=== PATIENT | male | born 1935 | race Caucasian/White ===

== ENCOUNTER 2017-04-23 08:22 | Inpatient (IN) | payer OTHER ==
[2017-04-04 09:54] LABS: HEMOGLOBIN 14.3 gm/dL (14.0-18.0); MCH 29.9 pg (26.0-34.0); MCHC 33.4 g/dL (28.0-37.0); MCV 89.6 fL (80.0-100.0); MPV 8.2 fl. (7.2-11.1); RBC 4.8 mil/uL (4.50-6.00); RDW-CV 13.8 % (10.5-14.5); WBC 9.4 thou/uL (4.0-11.0)
[2017-04-04 09:58] LABS: INR 1.1; PROTIME 10.7 Seconds (9.20-11.50)
[2017-04-04 10:24] LABS: ALBUMIN 3.6 g/dL (3.4-5.0); CALCIUM 8.8 mg/dL (8.5-10.1); CREATININE 1.2 mg/dL (0.6-1.3); POTASSIUM 3.7 mmol/L (3.5-5.1); TOTAL BILIRUBIN 0.9 mg/dL (<0.1-1.0); TOTAL PROTEIN 7.5 g/dL (6.4-8.2)
[2017-04-04 11:20] LABS: URINE BILIRUBIN NEGATIVE (Negative); URINE BLOOD NEGATIVE (Negative); URINE CLARITY CLEAR; URINE COLOR YELLOW; URINE GLUCOSE-RANDOM NEGATIVE (Negative); URINE KETONES TRACE (Negative); URINE LEUKOCYTES-REFLEX NEGATIVE (Negative); URINE NITRITE-REFLEX NEGATIVE (Negative); URINE PROTEIN NEGATIVE (Negative); URINE SPECIFIC GRAVITY 1.025 (1.005-1.030); URINE UROBILINOGEN 0.2 E.U./dl (0.2-1.0)
--- NOTE | 2017-04-04 17:19 | EKG ---
[place] [address] ELECTROCARDIOGRAM REPORT Name: ZI MAC Room: [address]#: [id number] Admission: 04/23/17 Attend Phys: Khadijah Clark Discharge: 04/27/17 Date of : 33 Report #: [id number] THIS REPORT FOR: //name// [facility] Test Date: 2017-04-04 Test Time: 09:06:25 Pat Name: ZI MAC Department: Room: Gender: Network Operations Project Manager: : 1935 Requested By: aMrk Carter Order Number: [id number] Miah MD: Kalia Esposito Measurements Intervals [place] Rate: 70 P: 0 MA: 263 QRS: -6 QRSD: 98 T: -16 QT: 402 QTc: 434 Interpretive Statements Sinus rhythm Prolonged MA interval RSR' in V1 or V2, right VCD or RVH LVH with secondary repolarization abnormality No previous ECG available for comparison Electronically Signed On 04-04-2017 17:19:47 BORING MACHINE SET UP OPERATOR JIG by Kalia Esposito [email or web address] <ELECTRONICALLY SIGNED> By: Kalia Esposito MD, LOCATED WITHIN [facility] 04/04/17 [id number] Kalia Esposito MD, [facility] /EPI
[~2017-04-23] VITALS: Ht 162.6 cm; Wt 72.6 kg
[~2017-04-23 08:22] MED LIST: ASPIR 8181 MG PO; CARDURA4 MG PO; MILK OF MA400 MG/5 M PO; NORVASC2.5 MG PO; OCUVITE TABLET1 EAC1 PO; PLAVIX 75 MG TA75 M1 PO; SYNTHROID50 MCG PO
[2017-04-23] MEDS ORDERED: PRESERVISION T1 EACH PO (08:46)
[2017-04-23 09:59] VITALS: BP 121/65
[2017-04-23 14:52] VITALS: BP 109/43
--- NOTE | 2017-04-23 17:51 | NUR ---
PT TRANSFERRED TO [facility], REPORT GIVEN TO SHELLIE LAMAS. PT DENIES PAIN OR OTHER DISCOMFORTS CURRENTLY. PT ADMITTED TO ORTHO S/P L TKA. SURGICAL DRESSING IN PLACE, POLAR CARE ON, SCD'S IN PLACE. HEMAVAC WITH SANGUINOUS DRAINAGE. PT HRR 90S. PT CONCERNED THAT HR IN 90S SAYING IT IS USUALLY IN 50S-60S. PT REPORTED FEELING HEART FLUTTERING. EKG OBTAINED, DR INFORMED AND ORDERS GIVEN. PT DENIED SOA OR CHEST PAIN.
--- NOTE | 2017-04-23 19:29 | NUR ---
PAITNET TRANSFERRED FROM JOINT/SPINE AT 17:45. PLACED ON 211 TELEMETRY PACK. 1DEGTREE AV BNLOCK WITH PVC ON MONITOR. HOURLY ROUNDING COMPLETED FOR PATIENT SAFETY
[2017-04-23 20:00] VITALS: BP 130/63
[2017-04-24] VITALS: BP 144/86
[2017-04-24 04:00] VITALS: BP 115/53
--- NOTE | 2017-04-24 04:18 | NUR ---
ASSUMED CARE OF PT AT 1930, NURSING ASSESSMENT COMPLETED AT START OF SHIFT, PRN PAIN MEDICATIONS ADMINISTERED THIS SHIFT, SEE EMAR FOR DOCUMENTATION, IVF INFUSING, PT TRACING SINUS RHTHM WITH 1ST DEGREE AV BLOCK. NO CONCERNS VOICED THIS SHIFT, PT ON CONTINUOUS CAPNOGRAPHY. CALL LIGHT WITHIN REACH.
[2017-04-24 05:24] LABS: HEMATOCRIT 36.6 % (42.0-52.0); HEMOGLOBIN 12.4 gm/dL (14.0-18.0)
--- NOTE | 2017-04-24 06:59 | NUR ---
PT TOLERATED 1 HR WITH CPM AT 2330. PT PLACED ON CPM AT 0645, TOLERATING WELL. NO CONCERNS VOICED AT THIS TIME.
--- NOTE | 2017-04-24 07:33 | NUR ---
SKILLED OT DEFERRED TO P.T. FOLLOWING LTKR.
[2017-04-24 08:00] VITALS: BP 140/65
[2017-04-24 09:39] LABS: CALCIUM 8.2 mg/dL (8.5-10.1); MAGNESIUM 2.4 mg/dL (1.8-2.4); POTASSIUM 3.5 mmol/L (3.5-5.1)
--- NOTE | 2017-04-24 10:51 | NUR ---
CM ASSESSMENT: VISITED WITH PT AND IN ROOM. PT SLIGHTLY CONFUSED FROM PAIN MEDS. STATES THE PLAN IS FOR PT TO RETURN HOME AND HAVE HOME HEALTH. SHE DOES NOT HAVE A PREFERENCE FOR A COMPANY. PT IS GOING TO TAKE HIS CPM AND POLAR PACK HOME WITH HIM
--- NOTE | 2017-04-24 11:19 | EKG ---
[place] [address] ELECTROCARDIOGRAM REPORT Name: ZI MAC Room: [address] IN [facility]#: [id number] Admission: 04/23/17 Attend Phys: Khadijah Clark Discharge: 04/27/17 Date of : 33 Report #: [id number] THIS REPORT FOR: //name// [facility] Test Date: 2017-04-23 Test Time: 16:23:07 Pat Name: ZI MAC Department: Room: [facility] Gender: Account Services Specialist: [facility] : 1935 Requested By: Travis Arias Order Number: [id number] Miah MD: Sekou Kaur Measurements Intervals [place] Rate: 92 P: MO: QRS: -16 QRSD: 101 T: 150 QT: 391 QTc: 484 Interpretive Statements sinus rhythm Multiple ventricular premature complexes Probable LVH with secondary repol abnrm Borderline prolonged QT interval Compared to ECG 04/04/2017 09:06:25 Ventricular premature complex(es) now present Electronically Signed On 04-24-2017 11:19:34 ASSISTANT EXECUTIVE HOUSEKEEPER by Sekou Kaur [email or web address] <ELECTRONICALLY SIGNED> By: Sekou Kaur MD, FAC 04/24/17 1119 1623 1623 Sekou Kaur MD, [facility] /EPI
[2017-04-24 11:41] VITALS: BP 145/65
[2017-04-24 16:00] VITALS: BP 104/50
--- NOTE | 2017-04-24 17:36 | 2DMMODE ---
[place] [address] 2 D/M-MODE ECHOCARDIOGRAM Name: ZI MAC Room: [address] IN [facility]#: [id number] Admission: 04/23/17 Attend Phys: David Grier Discharge: 04/27/17 Date of : 33 Date of Service: 04/24/17 1736 Report #: [id number] THIS REPORT FOR: //name// APPROVED REPORT Study performed: 04/24/2017 10:53:50 EXAM: Comprehensive 2D, Doppler, and color-flow Echocardiogram Patient Location: In-Patient Room #: 215 Status: routine BSA: 1.78 HR: 71 bpm BP: 115/53 mmHg Rhythm: NSR Other Information Study Quality: Good Indications Atrial Fibrillation 2D Dimensions LVEF(%): 56.99 (>50%) IVSd: 13.18 (7-11mm) LVOT Diam: 19.75 (18-24mm) LVDd: 34.12 mm PWd: 10.98 (7-11mm) Ascending Ao: 33.23 (22-36mm) LVDs: 24.20 (25-40mm) Aortic Root: 30.96 mm Hadley's LVEF: 56.99 % Volumes Left Atrial Volume (Systole) LA ESV Index: 25.40 mL/m2 Aortic Valve AoV Peak Delio.: 1.31 m/s AO Peak Gr.: 6.84 mmHg LVOT Max P.59 mmHg AO Mean Gr.: 3.70 mmHg LVOT Mean P.04 mmHg LVOT Max V: 1.07 m/s AO V2 VTI: 25.19 cm LVOT Mean V: 0.65 m/s ADRIANA (VTI): 2.84 cm2 LVOT V1 VTI: 23.39 cm Mitral Valve E/A Ratio: 0.86 [place] [address] 2 D/M-MODE ECHOCARDIOGRAM Name: ZI MAC Room: [address]#: [id number] Admission: 04/23/17 Attend Phys: David Grier Discharge: 04/27/17 Date of : 33 Date of Service: 04/24/17 1736 Report #: [id number] MV Decel. Time: 254.85 ms MV E Max Delio.: 0.66 m/s MV PHT: 73.91 ms MVA (PHT): 2.98 cm2 TDI E/Lateral E': 6.00 E/Medial E': 11.00 Medial E' Delio.: 0.06 m/s Lateral E' Delio.: 0.11 m/s Pulmonary Valve PV Peak Delio.: 0.90 m/s PV Peak Gr.: 3.27 mmHg Left Ventricle The left ventricle is normal size. There is normal LV segmental wall motion. There is normal left ventricular wall thickness. Left ventricular systolic function is normal. The left ventricular ejection fraction is within the normal range. LVEF is 55-60%. Grade I - abnormal relaxation pattern. Right Ventricle The right ventricle is normal size. The right ventricular systolic function is normal. Atria The left atrium size is normal. The right atrium size is normal. Aortic Valve The aortic valve is normal in structure. Trace aortic regurgitation. There is no aortic valvular stenosis. Mitral Valve The mitral valve is normal in structure. Trace mitral regurgitation. No evidence of mitral valve stenosis. Tricuspid Valve The tricuspid valve is normal in structure. Unable to assess PA pressure. Trace tricuspid regurgitation. Pulmonic Valve The pulmonary valve is normal in structure. There is no pulmonic valvular regurgitation. Great Vessels The aortic root is normal in size. IVC [place] [address] 2 D/M-MODE ECHOCARDIOGRAM Name: ZI MAC Room: [address] IN .R.#: [id number] Admission: 04/23/17 Attend Phys: David Grier Discharge: 04/27/17 Date of : 33 Date of Service: 04/24/17 1736 Report #: [id number] collapses with >50% inspiration Pericardium There is no pericardial effusion. <Conclusion> Left ventricular systolic function is normal. The left ventricular ejection fraction is within the normal range. <ELECTRONICALLY SIGNED> By: Sekou Kaur MD, FACC 04/24/17 1736 1736 1736 Sekou Kaur MD, FACC /INF
--- NOTE | 2017-04-24 19:06 | NUR ---
ASSUMED RESPONSIBILITY OF PT THIS AM PT VERY CONFUSED THIS AM AFTER GIVING PERCOCET 2 TABS PT PROCEEDED TO CALL 911 AND VERTICAL PUNCH OPERATOR CALLED TO LET US KNOW ASKED PT WHY HE DID THAT AND HE SAID 'WELL THEY ANSWERED ME. I DON'T KNOW I'M JUST ALL CONFUSED RIGHT NOW' STATED HE IS ALREADY KIND OF CONFUSED AT HOME AND PAIN MEDS MAKE IT WORSE GAVE PT IV TORADOL AND THAT SEEMED TO HELP WITHOUT HAVING HALLUCINATIONS OR BEING CONFUSED MUCH PT DID GET UP AND WALK WITH A WALKER WITH THERAPY AND DID WELL PT IS NSR 1D AV BLOCK ON THE MONITOR LFA CONT WITH 1/2 NS AT 75/H RODNEY DRAIN CONT WITH DARK RED THICK BLOOD POLAR PACK TO LEFT LEG AND CPM DONE THIS AM TOLERATED WELL CALL LIGHT IN REACH AT BEDSIDE T/O DAY BED ALARM ON PT IS NOW RESTING QUIETLY
[2017-04-24 20:00] VITALS: BP 110/73
[2017-04-25] VITALS: BP 113/53
--- NOTE | 2017-04-25 02:56 | NUR ---
ASSUMED CARE OF PT AT 1929, NURSING ASSESSMENT COMPLETED AT START OF SHIFT, PT CONFUSED, ORIENTED TO SELF ONLY. PT REORIENTED TO PERSON, PLACE, SITUATION AND DATE. PLACED LEFT LEG ON CPM. AT 2129, PT PUSHED SIDE TABLE ON IT'S SIDE, PULLED TELE MONITOR OFF, REMOVED IV CATHETER FROM LEFT FOREARM, PULLED POLAR PACK OFF AND PULLED RODNEY DRAIN. PT COMBATIVE, VERY AGGITATED, STATING HE NEEDED TO GET OUT OF BED, PT PARANOID, STATING THERE WAS AN ACTIVE SHOOTER AND THAT THAT THIS NURSE'S MOTHER IS . ATTEMPTED TO REORIENT PATIENT TO PERSON, PLACE, DATE, AND SITUATION. PT ATTEMPTED TO STRIKE NURSE WITH FIST, AND THREATENING TO HARM STAFF. DR. RIVAS PAGED AND NEW ORDERS RECEIVED. PT ADMINISTERED IM MEDICATION ORDERED, SEE EMAR FOR DOCUMENTATION. PT ONLY TOLERATED CPM FOR 30 MIN AT START OF SHIFT, RESTING QUETLY IN ROOM, SON AT BEDSIDE.
[2017-04-25 04:38] VITALS: BP 133/58
--- NOTE | 2017-04-25 05:28 | NUR ---
PT RESTING QUIETLY IN ROOM. SON CONTINUES AT BEDSIDE. ON TELE MONITOR THIS SHIFT, PT TRACING SINUS RHYTHM TO SINUS TACHY IN THE LOW 100'S. CALL LIGHT REMAINS WITHIN REACH.
[2017-04-25 05:32] LABS: HEMATOCRIT 32.5 % (42.0-52.0)
[2017-04-25 08:00] VITALS: BP 120/50
--- NOTE | 2017-04-25 09:51 | NUR ---
Spoke with Pt's son regarding disposition, son believes that Pt will need rehab at dc, d/t continued confusion after surgery. Explained how rehab works and how insurance pays. Son to speak with family regarding skilled. Pt was able to ambulate 100ft yesterday with PT. Following.
--- NOTE | 2017-04-25 15:00 | NUR ---
ASSUMED CARE OF PATIENT. AGREE WITH PREVIOUS NURSES CHARTING.
--- NOTE | 2017-04-25 18:01 | NUR ---
PATIENT IS VERY DROWZY AND CONFUSED. IV IS PATENT AND SALINE LOCKED IN LEFT FOREARM. DENIES PAIN AND NAUSEA. TOLERATED DIET FOR DINNER, REFUSED LUNCH. VSS ON ROOM AIR. HOURLY ROUNDS HAVE BEEN MAINTAINED THROUGHOUT SHIFT. CALL LIGHT IS WITHIN REACH. NURSING WILL CONTINUE TO MONITOR.
[2017-04-25 19:45] VITALS: BP 129/69
[2017-04-25 23:59] VITALS: BP 119/55
--- NOTE | 2017-04-26 04:25 | NUR ---
PATIENT HAS REMAINED ALERT AND ORIENTED X 2-3/FORGETFUL, PLEASANT AND COOPERATIVE. UTILIZED CPM LEFT LEG X 2 HOURS EARLY EVENING. TOLERATED WELL. HAS HAD NO STATED PAIN. DRESSING LEFT KNEE CLEAN AND DRY. VITAL SIGNS STABLE. TOLERATING FLUIDS AND HAS HAD ADEQUATE VOIDS. CONTINUE TO MONITOR.
[2017-04-26 08:00] VITALS: BP 121/49
--- NOTE | 2017-04-26 10:17 | NUR ---
FAXED OT RHONDAAL TO [facility] AND NOTIFIED HER.
--- NOTE | 2017-04-26 12:10 | S ---
[address] [address] SURGICAL PATH RPT PROCEDURE Name: ZI LUCIO Room: [address] IN ..#: [id number] Admission: 04/23/17 Date of : 33 Discharge: 04/27/17 Report #: [id number] Path Case #: [id number] PATHOLOGY REPORT COLLECTION DATE: 04/23/2017 RECEIVED DATE: 04/24/2017 SUBMITTING PHYS: Dr. Mark Carter II OTHER PHYS: Dr. David Martinez SPECIMEN(S) RECEIVED: A.Left knee bone and tissue * * * * * * * * * * * * FINAL DIAGNOSIS: Left knee bone and tissue, total knee replacement: - Benign meniscus with microcystic degenerative changes, benign synovium/fibrofatty tissue and benign bone and cartilage with severe degenerative changes. (JORDAN:pit; 04/25/2017) PATHOLOGIST: Hayden Murguia M.D. REPORT ELECTRONICALLY SIGNED BY: Hayden Murguia M.D. DATE/TIME: 04/26/2017 12:09 * * * * * * * * * * * * GROSS PATHOLOGY: Received in formalin labeled "Zi Lucio, left knee bone and tissue," are multiple segments of bone, including tibial plateau, measuring 13.4 x 12.5 x 2.2 cm in aggregate dimensions with admixed soft tissue; meniscus is present. The specimen shows focal eburnation of the articular surfaces. Highway Engineering Technician sections of bone and soft tissue are submitted in cassette A1, following decalcification. (SDY; 04/24/2017) After initial microscopic examination additional sections are submitted in cassette A2. (SDY; 04/26/2017) CLINICAL HISTORY: Left knee degenerative joint disease INITIAL CPT CODE(S): A; 35579, 52362 Professional services performed by [facility] at [facility], [address] [place] [address]. [place] [address] SURGICAL PATH RPT PROCEDURE Name: ZI LUCIO Room: [address] IN ..#: [id number] Admission: 04/23/17 Date of : 33 Discharge: 04/27/17 Report #: [id number] Path Case #: [id number] services performed by [facility] at [address] [place] [address], [facility] [address] [address]. [facility] [address] [place] [address] PHONE: [phone] DIRECTOR: Luis Felix M.D. * * * END OF REPORT * * *
--- NOTE | 2017-04-26 15:34 | NUR ---
PER ANTONIO, INSURANCE DENIED PT.TO GO TO SNF. DID NOT WANT TO DO PEER TO PEER REVIEW. HE SAID WE WILL KEEP PT.ONE MORE DAY. THERAPY FEELS PT.SHOULD GO TO SNF. FAXED P.T.TREATMENT FROM TODAY TO [facility]. SHE WILL RE SEND TO INSURANCE. AFTER SEEING PT.THERAPIST SAID PT.COULD PROBABLY GO HOME. TOLD HER THEY HAVE RAMPS AND COULD HAVE ACCESS TO A WC TO GET PT.IN HOUSE. CM SPOKE WITH PT.AND . SAID SON COULD COME STAY WITH THEM IF NEEDED. THEY CHOSE [facility] . REFERRAL SENT TO [facility]. SHE CALLED AND SAID TO NOTIFY HER OVER THE WEEKEND IF PT.GOES HOME AND FAX FINAL ORDERS. [facility]-[phone]/[phone]
[2017-04-26 16:00] VITALS: BP 130/54
--- NOTE | 2017-04-26 18:43 | NUR ---
ALERT AND ORIENTED X4. UP WITH ASSIST X1 WITH WALKER. PAIN BEING MANAGED WITH IV TORDOL. DENIES NAUSEA. ATTENDED THERAPY THIS AM AND PM. CPM USE X2 0-70. [facility] CARE IN PLACE. IV IS PATENT AND SALINE LOCKED. VSS ON ROOM AIR. HOURLY ROUNDS HAVE BEEN MAINTAINED THROUGHOUT SHIFT. CALL LIGHT IS WITHIN REACH. NURSING WILL CONTINUE TO MONITOR.
[2017-04-26 21:15] VITALS: BP 152/71
[2017-04-27 00:25] VITALS: BP 122/53
[2017-04-27 04:10] VITALS: BP 145/58
--- NOTE | 2017-04-27 05:14 | NUR ---
PATIENT HAS REMAINED ALERT AND ORIENTED X 2-3, FORGETFUL. PLEASANT AND COOPERATIVE. CPM X 2 HOURS AT HS. TOLERATED WELL. AMBULATED TO BR WITH WALKER, GAIT BELT AND CGA. DRESSING LEFT KNEE CLEAN AND DRY. PASSING GAS. NO BM. VITAL SIGNS STABLE. CONTINUE TO MONITOR.
[2017-04-27 08:07] VITALS: BP 143/63
[2017-04-27 10:03] VITALS: BP 143/63
[2017-04-27 14:34] VITALS: BP 143/63
[2017-04-27] MEDS ORDERED: XARELTO10 MG PO (14:47)
[2017-04-27] MEDS ORDERED: TRAMADOL 50 MG50 MG PO (14:50)
[2017-04-27] MEDS ORDERED: HYDROCODONE-AP1 EAC6 PO (14:51)
[2017-04-27] MEDS ORDERED: PERCOCET PO (14:52)
--- NOTE | 2017-04-27 14:56 | NUR ---
CM faxed final dc orders to [facility]. Pt discharging to home today.
[2017-04-27] MEDS ORDERED: COLACE100 MG PO (15:03)
[2017-04-27] MEDS ORDERED: METAMUCIL PACK3.4 GM PO (15:05)
--- NOTE | 2017-04-27 15:50 | NUR ---
PT DC'D HOME WITH ALL BELONGINGS. PT IV REMOVED INTACT BEFORE DISMISSAL. PT DENIED PAIN. UP WITH SBA USING WALKER. PRESCRIPTIONS SENT WITH PT.
--- NOTE | 2017-05-08 16:33 | OP ---
[facility] [address] [place] [address] OPERATIVE REPORT Name: ZI MAC Room: [address] IN .R.#: [id number] Admission: 04/23/17 Attend Phys: Khadijah Clark Discharge: 04/27/17 Date of : 33 Report #: [id number] THIS REPORT FOR: //name// CC: Mark Grier DATE OF SERVICE: 04/23/2017 PREOPERATIVE DIAGNOSIS: Left knee osteoarthritis. POSTOPERATIVE DIAGNOSIS: Left knee osteoarthritis. PROCEDURE: Left total knee arthroplasty. SURGEON: Mark Brito II, DO SPINNER FRAME: IVÁN Garcia ANESTHESIA: General endotracheal. ESTIMATED BLOOD LOSS: 50 mL. ANTIBIOTICS: Ancef preoperatively. DRAINS: Medium Hemovac. COMPLICATIONS: None. DISPOSITION: Stable to recovery room. IMPLANTS: Listed in the operative record and progress note. BRIEF HISTORY: The patient was seen in the preoperative area. Preop H and P was performed. The patient's site was marked, questions were answered. Risks and benefits were discussed with the patient in detail about surgery. The patient wished to proceed and assumed all risks. OPERATIVE PROCEDURE: The patient taken to operative suite, placed supine on the operating table, given appropriate anesthesia. The patient had a well-padded tourniquet applied to the upper thigh which was inflated to 300 mmHg after gravity exsanguination for the duration of procedure. The operative knee was sterilely prepped and draped. Surgery began by midline incision. This was carried down to subcutaneous tissues. A medial parapatellar arthrotomy was performed and carried down to bone. The patella was then everted and excess soft tissue was removed around the femur. The femoral cutting block was then [facility] [address] [place] [id number] OPERATIVE REPORT Name: ZI MAC Room: [address]#: [id number] Admission: 04/23/17 Attend Phys: Khadijah Clark Discharge: 04/27/17 Date of : 33 Report #: [id number] applied, checked with a drop marianna for rotational alignment, pinned into appropriate position and appropriate cuts were made. A 4-in-1 cutting block was then applied, checked for rotational alignment, pinned into an appropriate position, appropriate cuts were made. The tibia was then exposed. Excess meniscus was removed. Retractor was then placed on the collateral ligaments. The tibial cutting block was applied, pinned into appropriate position, checked with a drop marianna for rotational alignment and slope and appropriate cut was made. The tibial bone was removed. The tibial baseplate was then applied, checked for rotational alignment with drop marianna and pinned into appropriate position. Femur was then applied and a box cut was reamed. This was then trialed with the appropriate spacer which showed excellent fit and fill and excellent stability of the knee through all range of motion. The patella was then reamed in appropriate fashion and sized to appropriate size. Three peg holes were drilled and it was then trialed and found to have excellent flexion, extension, excellent tracking of patella from the groove. These trials were then removed. The tibia was then punched in appropriate fashion. Bone ends were cleansed with Pulsavac irrigation and cement was mixed and applied to the final implants. These were then malleted into position and held with the knee in extension and compressed to allow cement to cure. After it had cured, excess was removed using [place] and osteotome. The wound was then copiously irrigated and the final spacer was then malleted in position. The tourniquet was deflated. Hemostasis was obtained with electrocautery. Pain cocktail was injected. PRP gel was sprayed throughout the internal aspects of the knee. Medium Hemovac drain was then applied. The capsule was then closed with 2 FiberWire and #1 Vicryl in [id number] fashion. Skin was closed with 2-0 Vicryl and running 3-0 Monocryl. Dermabond and sterile dressing was then applied as well as Lino wrap and PolarCare. The patient was transported to recovery in stable condition. Counts were correct throughout the procedure. <ELECTRONICALLY SIGNED> By: Mark Carter II, DO 05/08/17 1633 1223 [id number] Carter II, DO /nt
== END 2017-04-27 15:45 | disposition home health service (06) | DRG 469 ==
LOC: M.TBA 08:22 → M.ORTHSURG 08:22 → M.2W 08:22 → M.PRE 11:20 → M.ORTHSURG 14:14 → M.PRE 16:08 → M.ORTHSURG 16:34 → M.2W 17:48 → M.ORTHSURG 04-25 14:52 → M.PRE 04-23 11:08
PROVIDERS: Internal Medicine; Orthopaedic Surgery; ADMIT Internal Medicine
PROC: 0SRD0J9 Replacement of Left Knee Joint with Synthetic Substitute, Cemented, Open Approach (ICD-10-PCS; principal; 2017-04-23)
DX: M17.12 Unilateral primary osteoarthritis, left knee (principal); G92 Toxic encephalopathy; I50.32 Chronic diastolic (congestive) heart failure; I25.10 Atherosclerotic heart disease of native coronary artery without angina pectoris; G47.33 Obstructive sleep apnea (adult) (pediatric); I49.3 Ventricular premature depolarization; E03.9 Hypothyroidism, unspecified; I11.0 Hypertensive heart disease with heart failure; K59.09 Other constipation; Z95.1 Presence of aortocoronary bypass graft; Z95.5 Presence of coronary angioplasty implant and graft; I25.2 Old myocardial infarction